=== PATIENT | female | born 1995 | race Caucasian/White ===

== ENCOUNTER 2017-11-08 16:28 | Emergency (ER) | payer OTHER ==
[2017-11-08 16:33] VITALS: BP 132/86; PULSE 89; TEMP 97.8; BMI 25.8
--- NOTE | 2017-11-08 16:33 | PDOC ---
Rapid Medical Evaluation Time Seen by Provider: 11/08/17 16:30 Medical Evaluation: Allergies Allergy/AdvReac Type Severity Reaction Status Date / Time No Known Allergies Allergy Verified 11/08/17 16:29 11/08/17 16:31 Pt c/o: nasal congestion, dry cough, eyes itchy and feeling feverish since sunday pt on exam: vss, no sinus pressure, post pharynx pink, lcta Pt ordered for: none p to proceed to the ED 11/08/17 16:33 Discharge Disposition - Diagnosis Nasal congestion - Referrals - Patient Instructions - Post Discharge Activity
--- NOTE | 2017-11-08 17:55 | PDOC ---
History of Present Illness - General Chief Complaint: Cold Symptoms Stated Complaint: ALLERGIES Time Seen by Provider: 11/08/17 16:30 History Source: Patient, Family Exam Limitations: No Limitations - History of Present Illness Initial Comments: 11/08/17 18:05 Patient is here with complaints of sneezing, chest tightness with cough, wheezing and suffering from seasonal pollen ALLERGIES Timing/Duration: reports: getting worse Severity: reports: moderate Associated Symptoms: reports: chest pain/soreness, facial pain, fever/chills, nasal congestion, nasal drainage Past History - Travel Traveled outside of the country in the last 30 days: No Close contact w/someone who was outside of country & ill: No - Past Medical History Allergies/Adverse Reactions: Allergies Allergy/AdvReac Type Severity Reaction Status Date / Time No Known Allergies Allergy Verified 11/08/17 16:29 Home Medications: Ambulatory Orders Albuterol Sulfate Inhaler - [Ventolin HFA Inhaler -] 1 - 2 inh PO Q4H #1 inhaler 11/08/17 Cetirizine HCl [All Day Allergy] 10 mg PO DAILY #30 tablet 11/08/17 - Suicide/Smoking/Psychosocial Hx Smoking History: Never smoked Review of Systems - Review of Systems Able to Perform ROS?: Yes Is the patient limited Malawian proficient: Yes Constitutional: Yes: Symptoms Reported, See HPI, Malaise HEENTM: Yes: Symptoms Reported, See HPI, Nose Congestion Respiratory: Yes: See HPI, Cough, Wheezing. No: Symptoms reported Musculoskeletal: Yes: See HPI. No: Symptoms Reported Integumentary: No: Symptoms Reported All Other Systems: Reviewed and Negative *Physical Exam - Vital Signs Last Vital Signs Temp Pulse Resp BP Pulse Ox 97.8 F 89 18 132/86 100 11/08/17 16:29 11/08/17 16:29 11/08/17 16:29 11/08/17 16:29 11/08/17 16:29 - Physical Exam General Appearance: Yes: Nourished, Appropriately Dressed, Apparent Distress, Mild Distress HEENT: positive: EOMI, ANA, Normal ENT Inspection, TMs Normal, Pharynx Normal, Rhinorrhea, Sinus Tenderness Neck: positive: Supple, Lymphadenopathy (R), Lymphadenopathy (L). negative: Tender Respiratory/Chest: positive: Wheezing. negative: Lungs Clear, Normal Breath Sounds Gastrointestinal/Abdominal: positive: Soft Musculoskeletal: positive: CVA Tenderness Extremity: positive: Normal Capillary Refill, Normal Inspection Integumentary: positive: Dry, Warm, Pale Neurologic: positive: configuration management specialist II-XII NML intact, Fully Oriented, Alert, Normal Mood/ Affect, Normal Response, Motor Strength 5/5 Progress Note - Progress Note Progress Note: Patient given 1 DuoNeb with much relief of chest tightness and wheezing. States feels much improved. Will start using antihistamines daily, and given albuterol pump. Encouraged follow-up with PMD *DC/Admit/Observation/Transfer Diagnosis at time of Disposition: Allergic rhinitis Qualifiers: Allergic rhinitis trigger: pollen Allergic rhinitis seasonality: seasonal Qualified Code(s): J30.1 - Allergic rhinitis due to pollen - Discharge Dispostion Disposition: HOME Condition at time of disposition: Stable Decision to Admit order: No - Referrals - Patient Instructions Printed Discharge Instructions: DI for Allergic Rhinitis Additional Instructions: Rest, drink lots of fluids: Teas, water, soups Saltwater gargles. Consider humidifier in room at night Steamy showers/seem to face break up mucus Avoid contact with allergens, exposure to pollens, close windows on a windy day Lots of handwashing and good hygiene Continue [id number] medications for symptomatic relief- may use allergic eyedrops for itching I Continue antihistamines daily until pollen season is over; Zyrtec, Claritin, Shyann during the daytime and Benadryl at nighttime as will make sleepy Tylenol or Motrin for fever and pain Continue albuterol inhaler, 2 puffs 4 times a day for 2 days then as needed Followup with private physician in one to 2 days as needed Consider following up with an district director/flight control tower operator for skin testing and possible allergy shots Return to emergency department for worsened symptoms, fevers, dehydration - Post Discharge Activity Forms/Work/School Notes: Back to Work
== END 2017-11-08 18:04 | disposition home or self-care (01) ==
LOC: JERFT 16:28
DX: J30.1 Allergic rhinitis due to pollen (principal)
CPT/HCPCS: 99281-25

== ENCOUNTER 2018-08-05 16:18 | Emergency (ER) | payer OTHER | END 2018-08-05 22:16 | disposition home or self-care (01) | LOC: JER 16:18 ==

== ENCOUNTER 2019-03-08 15:14 | Emergency (ER) | payer OTHER ==
[2019-03-08 15:25] VITALS: BMI 27.4
[2019-03-08] MEDS ORDERED: SODIUM CHLORIDE 1,000 ML IV STA (16:46)
--- NOTE | 2019-03-08 17:17 | PDOC ---
History of Present Illness - General Chief Complaint: Syncope/Near Syncope Stated Complaint: Syncope/Near Syncope Time Seen by Provider: 03/08/19 16:17 History Source: Patient Exam Limitations: No Limitations - History of Present Illness Initial Comments: 03/08/19 17:13 HISTORY OF PRESENT ILLNESS: This is a 24-year-old woman who is currently 35 weeks 6 days in her first with an EDC of 03/30 presents emergency department for evaluation of brief episode of room spinning dizziness. Patient reports that approximately 3:00 today she had a 2-3 minute episode of the room was spinning and she had a hard time keeping her balance. After the 2-3 minutes patient reported spontaneous resolution of symptoms has since returned to baseline. Currently has no complaints. She denies any fevers, chills, visual changes, headache, nausea, vomiting or chest pain, shortness of breath. Patient denies any obstetric complaints. No recent travel or sick contacts. PAST MEDICAL HISTORY: see HPI SURGICAL HISTORY: Denies ALLERGIES: No known drug allergies REVIEW OF SYSTEMS General/Constitutional: Denies fever or chills. Denies weakness, weight change. HEENT: Denies change in vision. Denies ear pain or discharge. Denies sore throat. Cardiovascular: Denies chest pain or shortness of breath. Respiratory: Denies cough, wheezing, or hemoptysis. Gastrointestinal: Denies nausea, vomiting, diarrhea or constipation. Denies rectal bleeding. Genitourinary: Denies dysuria, frequency, or change in urination. Musculoskeletal: Denies joint or muscle swelling or pain. Denies neck or back pain. Skin and breasts: Denies rash or easy bruising. Neurologic: see HPI Psychiatric: Denies depression or anxiety. Endocrine: Denies increased thirst. Denies abnormal weight change. Hematologic/Lymphatic: Denies anemia, easy bleeding, or history of blood clots. Allergic/Immunologic: Denies hives or skin allergy. Denies latex allergy. PHYSICAL EXAM General Appearance: Well-appearing, appropriately dressed. No apparent distress , no intoxication. HEENT: EOMI, PERRLA, normal ENT inspection, normal voice, TMs normal, pharynx normal. No conjunctival pallor. No photophobia, scleral icterus. Neck: Supple. Trachea midline. No tenderness, rigidity, carotid bruit, stridor , lymphadenopathy, or thyromegaly. Respiratory/Chest: Lungs CTAB. No shortness of breath, chest tenderness, respiratory distress, accessory muscle use. No crackles, rales, rhonchi, stridor , wheezing, dullness Cardiovascular: RRR. S1, S2. No JVD, murmur, bradycardia, tachycardia. Neurologic: telegraph service clerk II-XII intact. Fully oriented, alert. Appropriate mood/affect. Motor strength 5/5. No appreciable EOM palsy, facial droop or sensory deficit. (-)Rhomberg. Past History - Past Medical History Allergies/Adverse Reactions: Allergies Allergy/AdvReac Type Severity Reaction Status Date / Time No Known Allergies Allergy Verified 03/08/19 15:24 Home Medications: Ambulatory Orders Ferrous Sulfate [Feosol] 325 mg PO DAILY 01/09/19 Vits96/Iron Fum/Folic [ Tablet] 1 each PO DAILY 01/09/19 Cephalexin Monohydrate [Keflex -] 500 mg PO BID #14 capsule 03/08/19 COPD: No - Suicide/Smoking/Psychosocial Hx Smoking History: Never smoked *Physical Exam - Vital Signs Last Vital Signs Temp Pulse Resp BP Pulse Ox 98.7 F 106 H 18 143/81 100 03/08/19 15:22 03/08/19 15:22 03/08/19 15:22 03/08/19 15:22 03/08/19 15:22 ED Treatment Course - LABORATORY CBC & Chemistry Diagram: 03/08/19 17:09 03/08/19 17:09 Medical Decision Making - Medical Decision Making 03/08/19 17:16 A/P: 24-year-old woman with brief episode of vertiginous symptoms Physical exam is currently within normal limits. Patient offers no complaints at this time. I will get one set of labs including cardiac profile is normal an EKG. Full is normal with sent patient to labor and delivery for obstetrical evaluation prior to discharge home. Patient has agreement with this current plan. 03/08/19 19:10 EKG sinus rhythm with rate of 100. Normal intervals noted. Normal axis. No ischemic changes noted. CBC notable for WBC 12.1. No shift noted. Chemistries notable for an elevation in alkaline phosphatase-163. Cardiac profile is unremarkable. Urinalysis shows 2+ leuk esterase. I will treat for UTI as patient is . I'll discharge patient home the first go to L&D for monitoring. I discussed the physical exam findings, ancillary test results and final diagnoses with the patient. I answered all of the patient's questions. The patient was satisfied with the care received and felt comfortable with the discharge plan and treatment plan. The patient will call their primary care physician within 24 hours to arrange follow-up and will return to the Emergency Department with any new, persistent or worsening symptoms. Portions of this note have been documented using voice recognition software. As a result, errors may occur in the exercise instruct process. Effort has been made to correct all grammatical and exercise instruct error, but some may have been missed. 03/08/19 19:19 *DC/Admit/Observation/Transfer Diagnosis at time of Disposition: Cystitis - Discharge Dispostion Disposition: HOME Condition at time of disposition: Stable Decision to Admit order: No - Prescriptions Prescriptions: Cephalexin Monohydrate [Keflex -] 500 mg PO BID #14 capsule - Referrals - Patient Instructions Additional Instructions: Rest, drink lots of fluids: Teas, water, soups Avoid contact with others until fevers and symptoms resolved Lots of handwashing and good hygiene Continue [id number] medications for symptomatic relief Tylenol or Motrin for fever and pain Continue all of antibiotics until completed Followup with private physician in one week for repeat urinalysis/reevaluation Return to emergency department for worsened symptoms, fevers, dehydration bianca Escobaros lquidos: Ts, agua, sopas Evite el contacto con otros hasta que las fiebres y los sntomas se resuelvan Un montn de lavado de vishnu y buena higiene Contine los medicamentos sin receta para el alivio sintomtico Tylenol o Motrin para la fiebre y el dolor Continuar todos los antibiticos hasta completarse Seguimiento con mdico privado en kieran semana para repetir anlisis de orina / reevaluacin Volver al servicio de urgencias por sntomas empeorados, fiebres, deshidratacin - Post Discharge Activity
[2019-03-08 17:28] LABS: BASO % 0.4 % (0-2.0); EOS % 2.8 % (0-4.5); HEMATOCRIT 35.6 % (32.4-45.2); HEMOGLOBIN 11.6 GM/dL (10.7-15.3); LYMPH % 17.4 % (8-40); MCH 27.2 pg (25.7-33.7); MCHC 32.7 g/dl (32.0-36.0); MEAN CELL VOLUME 83.3 fl (80-96); MEAN PLT VOLUME 8.6 fl (7.5-11.1); MONO % 7.1 % (3.8-10.2); NEUT % 72.3 % (42.8-82.8); PLATELET COUNT 285 K/MM3 (134-434); RBC 4.27 M/mm3 (3.60-5.2); RDW 14.5 % (11.6-15.6); WHITE BLOOD COUNT 12.1 K/mm3 (4.0-10.0)
[2019-03-08 17:47] LABS: URINE APPEARANCE CLOUDY; URINE BILIRUBIN NEGATIVE (NEGATIVE); URINE COLOR YELLOW; URINE GLUCOSE (UA) NEGATIVE (NEGATIVE); URINE KETONE NEGATIVE (NEGATIVE); URINE LEUK ESTERASE 2+ (NEGATIVE); URINE NITRITE NEGATIVE (NEGATIVE); URINE PROTEIN NEGATIVE (NEGATIVE); URINE UROBILINOGEN 0.2 mg/dL (0.2-1.0)
[2019-03-08 18:13] LABS: ALBUMIN 3.3 g/dl (3.4-5.0); ALK PHOS 163 U/L (45-117); ANION GAP 9 MMOL/L (8-16); BILIRUBIN,TOTAL 0.6 mg/dL (0.2-1); BLOOD UREA NITROGEN 7.6 mg/dL (7-18); CALCIUM 8.9 mg/dL (8.5-10.1); CHLORIDE 108 mmol/L (98-107); CO2 24 mmol/L (21-32); CREATININE 0.7 mg/dL (0.55-1.3); GLUCOSE,RANDOM 93 mg/dL (74-106); POTASSIUM 3.9 mmol/L (3.5-5.1); SGOT/AST 18 U/L (15-37); SGPT/ALT 18 U/L (13-61); SODIUM 140 mmol/L (136-145); TOT PROT 6.5 g/dl (6.4-8.2)
[2019-03-08 20:22] VITALS: BP 121/66; PULSE 88; TEMP 98.3
[2019-03-08 21:10] LABS: URINE RBC 0.3 /hpf (0-4); URINE WBC 28.5 /hpf (0-5)
[2019-03-08 21:11] LABS: EPI CELLS 9.7 /HPF (0-5/HPF); HYALINE CASTS 10.15 /lpf (0-8); URINE BACTERIA 944.6 /hpf (NEGATIVE)
--- NOTE | 2019-03-09 16:45 | EKG ---
Test Reason : Blood Pressure : / mmHG Vent. Rate : 100 BPM Atrial Rate : 100 BPM P-R Int : 126 ms QRS Dur : 084 ms QT Int : 340 ms P-R-T Axes : 062 049 014 degrees QTc Int : 438 ms NORMAL SINUS RHYTHM POSSIBLE LEFT ATRIAL ENLARGEMENT BORDERLINE ECG NO PREVIOUS ECGS AVAILABLE Confirmed by DENI DEVLIN MD ([id number]) on 03/09/2019 4:45:32 PM Referred By: Confirmed By:DENI DEVLIN MD
== END 2019-03-08 20:52 | disposition home or self-care (01) ==
LOC: JER 15:14
PROC: 3E0337Z Introduction of Electrolytic and Water Balance Substance into Peripheral Vein, Percutaneous Approach (ICD-10-PCS; principal; 2019-03-08)
DX: O26.893 Other specified pregnancy related conditions, third trimester (principal); O23.13 Infections of bladder in pregnancy, third trimester; Z3A.35 35 weeks gestation of pregnancy
CPT/HCPCS: 36415; 80053; 81003; 82550; 84484; 85025; 87086; 93005; 93010; 96360; 99283-25; J7030

== ENCOUNTER 2019-03-28 03:05 | Inpatient (IN) | payer OTHER ==
[2019-03-28 04:30] LABS: INR 0.92 (0.83-1.09); PROTHROMBIN TIME (PATIENT) 10.9 SEC (9.7-13.0)
[2019-03-28 04:33] LABS: ACTIVATED PTT 21.3 SECONDS (25.2-36.5)
[2019-03-28 04:48] LABS: CALCIUM 8.8 mg/dL (8.5-10.1); CREATININE 0.6 mg/dL (0.55-1.3); POTASSIUM 3.9 mmol/L (3.5-5.1)
[2019-03-28 05:10] VITALS: BMI 28.2
[2019-03-28] MEDS ORDERED: BUTORPHANOL TARTRATE 1 MG/ML VIAL ONE ×2 (05:48)
[2019-03-28 05:49] LABS: HEMATOCRIT 33.4 % (32.4-45.2); HEMOGLOBIN 11.2 GM/dL (10.7-15.3); MCH 27.1 pg (25.7-33.7); MCHC 33.7 g/dl (32.0-36.0); MEAN CELL VOLUME 80.5 fl (80-96); MEAN PLT VOLUME 8.6 fl (7.5-11.1); PLATELET COUNT 271 K/MM3 (134-434); RBC 4.15 M/mm3 (3.60-5.2); WHITE BLOOD COUNT 13.6 K/mm3 (4.0-10.0)
[2019-03-28] MEDS ORDERED: PROMETHAZINE HCL 25 MG/1 ML VIAL ONE (05:49)
--- NOTE | 2019-03-28 05:51 | HP ---
Admitting History and Physical - Admission Chief Complaint: labor pains and ctx History of Present Illness: 24 y/o comes with labor pains and srom--she was seen here earlier then sent home--returns with srom and contractions. Baby is moving pt of hrhcrae hep-neg hiv-neg rpr-neg quant-neg gbs-neg History Source: Patient - Past Medical History LEASING COORDINATOR: No: Alzheimer's, CVA, Dementia, Migraine, Multiple Sclerosis, Peripheral Neuropathy, Parkinson's, Seizure, Syncope, TIA, Vertigo, Other Cardiovascular: No: AFIB, Aneurysm, Aortic Insufficiency, Aortic Stenosis, CAD, CHF, Deep Vein Thrombosis, HTN, Hyperlipdemia, NV, Mitral Insufficiency, Mitral Stenosis, Murmur, Pulmonary Hypertension, Other Pulmonary: No: Asthma, Bronchitis, Cancer, COPD, O2 Dependent, Pneumonia, Previously Intubated, Pulmonary Embolus, Pulmonary Fibrosis, Sleep Apnea, Other Gastrointestinal: No: Ascites, Cancer, Constipation, Crohn's Disease, Diverticulitis, Diverticulosis, Esophageal Varices, Gastritis, GERD, GI Bleed, Hemorrhoids, Hiatal Hernia, Inflamatory Bowel Disease, Irritable Bowel Disease, Pancreatitis, Peptic Ulcer Disease, Ulcerative Colitis, Other Hepatobiliary: No: Cirrhosis, Cholelithiasis, Cholecystitis, Choledocholithiasis , Hepatitis A, Hepatitis B, Hepatitis C, Other Renal/: No: Renal Failure, Renal Inusuff, BPH, Cancer, Hematuria, Hemodialysis , Neurogenic Bladder, Renal Calculi, UTI, Other ...: 1 ...Para: 0 Heme/Onc: No: Anemia, B12 Deficiency, Bleeding Disorder, Cancer, Current Chemotherapy, Current Radiation Therapy, Hemochromatosis, Hypercoaguable State, Myeloproliferative Synd, Sickle Cell Disease, Sickle Cell Trait, Thrombocytopenia, Other Infectious Disease: No: AIDS, C-Diff, Herpes Zoster, HIV, MRSA, STD's, Tuberculosis, VREF, Other Psych: No: Addictions, Anxiety, Bipolar, Depression, Panic, Psychosis, Schizophrenia, Other Musculoskeletal: No: Bursitis, Chronic low back pain, Hemiparesis, Hemiplegia, Osteoarthritis, Paraplegia, Other Rheumatology: No: Fibromyalgia, Gout, Lupus, Rheumatoid Arthritis, Sarcoidosis, Vasculitis, Other ENT: No: Allergic Rhinitis, Sinusitis, Other Endocrine: No: Riley's Disease, Downing's Disease, Diabetes Insipidus, Diabetes Mellitus, Hyperparathyroidism, Hyperthyroidism, Hypothyroidism, Osteopenia, SIADH, Other - Smoking History Smoking history: Never smoked - Alcohol/Substance Use Hx Alcohol Use: No Home Medications - Allergies Allergies/Adverse Reactions: Allergies Allergy/AdvReac Type Severity Reaction Status Date / Time No Known Allergies Allergy Verified 03/28/19 05:12 - Home Medications Home Medications: Ambulatory Orders Ferrous Sulfate [Feosol] 325 mg PO DAILY 01/09/19 Vits96/Iron Fum/Folic [ Tablet] 1 each PO DAILY 01/09/19 Review of Systems - Review of Systems Constitutional: denies: No Symptoms, Chills, Diaphoresis, Fever, Lethargy, Loss of Appetite, Malaise, Night Sweats, Unintentional Wgt. Loss, Weakness, Other Eyes: denies: No Symptoms, Blind Spots, Blurred Vision, Double Vision, Eye Pain , Floaters, Photophobia, Recent Change in Vision, Other HENT: denies: No Symptoms, Difficult Swallowing, Ear Discharge, Ear Pain, Epistaxis, Gingival Bleeding, Hearing Loss, Mouth Swelling, Nasal Congestion, Ocular Prosthesis, Throat Pain, Toothache, Ringing in Ears, Other Cardiovascular: denies: No Symptoms, Chest Pain, Edema, Palpitations, Shortness of Breath, Other Respiratory: denies: No Symptoms, Cough, Exercise Intolerance, Hemoptysis, Orthopnea, PND, Snoring, SOB, SOB on Exertion, Wheezing, Other Gastrointestinal: denies: No Symptoms, Abdominal Pain, Bloating, Constipation, Diarrhea, Dysphagia, Indigestion, Melena, Nausea, Rectal Bleeding, Vomiting, Vomiting Blood, Other Genitourinary: denies: No Symptoms, Burning, Discharge, Dysuria, Flank Pain, Frequency, Hematuria, Incontinence, Lesions, Menses, Pain, Testicular Mass, Testicular Pain, Testicular Swelling, Urgency, Vaginal Bleeding, Other Integumentary: denies: No Symptoms, Blister, Bruising, Change in Color, Eczema, Erythema, Incision, Lesions, Lump, Pallor, Pruritis, Rash, Wound, Other Neurological: denies: No Symptoms, Change in LOC, Change in Speech, Confusion, Dizziness, Headache, Incoordination, Numbness, Parasthesia, Pre-Existing Deficit , Seizure, Syncope, Tremors, Unsteady Gait, Weakness, Other Endocrine: denies: No Symptoms, Excessive Sweating, Flushing, Increased Hunger, Increased Thirst, Intolerance to Cold, Intolerance to Heat, Unexplained Weight Gain, Unexplained Weight Loss, Other Hematology/Lymphatic: denies: No Symptoms, Easily Bruised, Excessive Bleeding, Swollen Glands, Other Physical Examination Constitutional: Yes: Well Nourished Eyes: Yes: WNL HENT: Yes: WNL Neck: Yes: WNL Cardiovascular: Yes: WNL Respiratory: Yes: WNL Gastrointestinal: Yes: WNL ...Rectal Exam: Yes: WNL Renal/: Yes: WNL Breast(s): Yes: WNL Extremities: Yes: WNL (3cm/-2 cat1) Labs: CBC, BMP 03/28/19 03:35 Assessment/Plan as above admit pains meds labs labor
[2019-03-28] MEDS ORDERED: PROMETHAZINE HCL 25 MG/1 ML VIAL IVPUSH ONE (06:17)
[2019-03-28] MEDS ORDERED: BUTORPHANOL TARTRATE 1 MG/ML VIAL IVPB ONE (06:17)
[2019-03-28] MEDS ORDERED: DEXTROSE 5%-LACTATED RINGERS 1,000 ML IV SCH (06:30)
[2019-03-28] MEDS ORDERED: FENTANYL/BUPIVACAINE/NS/PF - PCEA - 50 ML DISP.SYRIN EP ONE (08:14)
--- NOTE | 2019-03-28 08:33 | PN ---
Progress Note, Labor Vaginal Exam #1 Labor Exam Date: 03/28/19 Labor Exam Time: 08:00 Heart Rate (range): 135 Dilatation: 7 Effacement (%): 100 Amniotic Membrane Status: Ruptured Presentation: Vertex/Position Station: 0 Remarks: uc q 3-5 fhr cat -1 epidural 8.[address] trial of labor
[2019-03-28] MEDS ORDERED: OXYTOCIN 20 UNITS in 0.9% NS 20 UNIT/1,000 ML INFUS.BAG IV ONE ×2 (08:44→12:05)
[2019-03-28] MEDS ORDERED: LIDOCAINE HCL 1% PRESERVATIVE FREE - 30ML VIAL ONE (08:44)
[2019-03-28] MEDS ORDERED: NALOXONE HCL 0.4 MG/ML VIAL IVPUSH PRN ×2 (11:25→11:40)
[2019-03-28] MEDS ORDERED: ceFAZolin 2 GRAM PREMIX BAG IVPB ONE (11:26)
[2019-03-28] MEDS ORDERED: oxyCODONE HCL 5 MG TABLET PO PRN (11:27)
[2019-03-28] MEDS ORDERED: WITCH HAZEL 50% (TUCKS) 40 PAD/JAR PAD TP PRN (11:27)
[2019-03-28] MEDS ORDERED: BENZOCAINE 28 GM HEMORRHOIDAL OINTMENT TP PRN (11:27)
[2019-03-28] MEDS ORDERED: BISACODYL 10 MG SUPP.RECT RC PRN (11:27)
[2019-03-28] MEDS ORDERED: SENNOSIDES/DOCUSATE COMBO (SENNA PLUS) TABLET (UD) PO STA (11:27)
[2019-03-28] MEDS ORDERED: METHYLERGONOVINE MALEATE 0.2 MG/1 ML AMP IM PRN (11:27)
[2019-03-28] MEDS ORDERED: BENZOCAINE 20% 57 GM BOTTLE TP PRN (11:27)
[2019-03-28] MEDS ORDERED: FENTANYL/BUPIVACAINE/NS/PF - PCEA - 50 ML DISP.SYRIN EP SCH ×2 (11:30→11:45)
[2019-03-28] MEDS ORDERED: OXYTOCIN 20 UNITS in 0.9% NS 20 UNIT/1,000 ML INFUS.BAG IV SCH (11:30)
[2019-03-28] MEDS ORDERED: CEFAZOLIN 2 GM/D5W 2 GM/50 ML ML IVPB ONE (12:05)
--- NOTE | 2019-03-28 15:57 | PN ---
Delivery - Delivery Vaginal Delivery: Spontaneous (pt delivered vx , presentation, Adalid position, large caput , loose loop of cord around neck , ant shoulder delivered by giving exagerrated lithotomy position without problem . placenta & membranes delievered completly, MEU done ut intact & empty. Vaginal Left Lateral Laceration noted deep inside bleeding , vaginal mucosa very fragile .laceration sutured with chr catgut #2/0 suture . hemostasis achieved media episiotomy was given . NH exam was done partial sphincter tear was noted which was sutured with 2/0 chr catgut & suture were held not tied . After suturing vaginal mucosa , ligatures were tied. deep perineal & superficial muscles tied , skin approximated with 2/o cr catgut suture . Xyloicaine 1% was infiltrated before suturing .NH exam repeated mucosa & sphincter intact . ebl 500ml approx . Note : vaginal bleeding from laceration was noted prior to delivery) Type of Anesthesia: Local, Epidural Episiotomy/Laceration: Midline, Vaginal Extension/lac, 3rd degree EBL (cc): 500 Delivery, Single - Stages of Labor Date 1st Stage Initiatied: 03/28/19 Time 1st Stage Initiated: 05:00 Date 2nd Stage Initiated: 03/28/19 Time 2nd Stage Initiated: 09:40 Date of Delivery: 03/28/19 Time of Delivery: 10:29 Time Placenta Delivered: 10:35 Placenta: Yes: Spontaneous - Condition of Infant Senior Business Architect/Assistant Refinery Operator Present: No Infant Gender: Male Weight: 8 lb 4 oz Position: Left, OA Total Hours ROM (Hrs/Mins): 8hrs/35mins - 1 Minute Total Score: 8 5 Minutes Total Score: 9 - Feeding Plan Initial Plan: Elected not to breastfeed exclusively throughout hospitalization Remarks - Remarks Remarks: 24 yrs Edc 03/14/19 by janie -42 weeks. Edc by min 03/29/19 39.5/7 weeks by min . wiley Christensen for Srom since 2.00 AM on 03/28/19 in labor Gbs neg. Pnc at [address] [place] [address]
[2019-03-28] MEDS: FERROUS SO4 325 MG TABLET (FP) PO SCH (17:37)
[2019-03-28] MEDS: IBUPROFEN 600 MG TABLET (FP) PO PRN (17:56)
[2019-03-28] MEDS: ACETAMINOPHEN 325 MG TABLET (FP) PO PRN (17:58)
[2019-03-29 07:18] LABS: BASO % 0.6 % (0-2.0); EOS % 0.9 % (0-4.5); HEMATOCRIT 27.4 % (32.4-45.2); HEMOGLOBIN 9.3 GM/dL (10.7-15.3); LYMPH % 20.8 % (8-40); MCH 27.8 pg (25.7-33.7); MCHC 33.9 g/dl (32.0-36.0); MEAN CELL VOLUME 81.9 fl (80-96); MEAN PLT VOLUME 8.4 fl (7.5-11.1); MONO % 7.9 % (3.8-10.2); NEUT % 69.8 % (42.8-82.8); PLATELET COUNT 265 K/MM3 (134-434); RBC 3.34 M/mm3 (3.60-5.2); RDW 15.2 % (11.6-15.6); WHITE BLOOD COUNT 13.6 K/mm3 (4.0-10.0)
--- NOTE | 2019-03-29 08:07 | PN ---
Post Progress Note - Subjective Subjective: no c/o cramps no c/o perineal soreness Post Day: 1 Type of Delivery: Vital Signs: Vital Signs Temperature 98.3 F 03/29/19 06:00 Pulse Rate 93 H 03/29/19 06:00 Respiratory Rate 18 03/29/19 06:00 Blood Pressure 118/65 03/29/19 06:00 O2 Sat by Pulse Oximetry (%) 99 03/28/19 13:38 Breast Exam: Yes: Soft, Other (attempting BF). No: Engorged Uterus: Yes: Fundus Firm, Fundus below umbilicus, Non-tender Lochia: Yes: Rubra Lochia, amount: Moderate Extremities: Yes: Calves non-tender, Edema Perineum: Yes: Episiotomy (healing . hygeine kept well ) Activity: Ambulating - Labs Labs: CBC WBC 13.6 K/mm3 (4.0-10.0) H 03/29/19 06:40 Corrected WBC (auto) Cancelled 03/28/19 03:35 RBC 3.34 M/mm3 (3.60-5.2) L 03/29/19 06:40 Hgb 9.3 GM/dL (10.7-15.3) L 03/29/19 06:40 Hct 27.4 % (32.4-45.2) L D 03/29/19 06:40 MCV 81.9 fl (80-96) 03/29/19 06:40 MCH 27.8 pg (25.7-33.7) 03/29/19 06:40 MCHC 33.9 g/dl (32.0-36.0) 03/29/19 06:40 RDW 15.2 % (11.6-15.6) 03/29/19 06:40 Plt Count 265 K/MM3 (134-434) 03/29/19 06:40 MPV 8.4 fl (7.5-11.1) 03/29/19 06:40 Absolute Neuts (auto) 9.5 K/mm3 (1.5-8.0) H 03/29/19 06:40 Neutrophils % 69.8 % (42.8-82.8) 03/29/19 06:40 Lymphocytes % 20.8 % (8-40) 03/29/19 06:40 Monocytes % 7.9 % (3.8-10.2) 03/29/19 06:40 Eosinophils % 0.9 % (0-4.5) 03/29/19 06:40 Basophils % 0.6 % (0-2.0) 03/29/19 06:40 Nucleated RBC % 0 % (0-0) 03/29/19 06:40 Platelet Estimate Cancelled 03/28/19 03:35 Platelet Comment Cancelled 03/28/19 03:35 Problem List - Problems (1) (normal spontaneous vaginal delivery) Code(s): O80 - ENCOUNTER FOR FULL-TERM UNCOMPLICATED DELIVERY (2) Encounter for care and examination after delivery Code(s): Z39.2 - ENCOUNTER FOR ROUTINE FOLLOW-UP Assessment/Plan stable anemia counselled plan discharge tomorrow.
[2019-03-29] MEDS: FERROUS SO4 325 MG TABLET (FP) PO SCH ×2 (08:14→17:44)
[2019-03-29] MEDS: PRENATAL VITAMINS W/ FOLIC ACID TABLET (FP) PO SCH (09:58)
[2019-03-29] MEDS: IBUPROFEN 600 MG TABLET (FP) PO PRN (20:09)
[2019-03-29] MEDS: ACETAMINOPHEN 325 MG TABLET (FP) PO PRN (20:09)
[2019-03-30] MEDS: PRENATAL VITAMINS W/ FOLIC ACID TABLET (FP) PO SCH (09:15)
[2019-03-30] MEDS: FERROUS SO4 325 MG TABLET (FP) PO SCH (09:15)
--- NOTE | 2019-03-30 10:06 | DS ---
Physical Exam-CLUBHOUSE MANAGER Vital Signs: Vital Signs Temperature 98.0 F 03/29/19 20:31 Pulse Rate 104 H 03/29/19 20:31 Respiratory Rate 18 03/29/19 20:31 Blood Pressure 114/78 03/29/19 20:31 O2 Sat by Pulse Oximetry (%) 99 03/28/19 13:38 Constitutional: Yes: Well Nourished Eyes: Yes: WNL HENT: Yes: WNL, Normocephalic Neck: Yes: WNL Cardiovascular: Yes: WNL Respiratory: Yes: WNL Gastrointestinal: Yes: WNL, Normal Bowel Sounds ...Rectal Exam: Yes: WNL, Sphincter Tone Normal (partial sphincter tear repair during delivery), Other Renal/: Yes: WNL ....Post : Yes: Uterus firm, Uterus non-tender, Moderate lochia rubra ( perineal hygeine good sutures intact , healing, no edema or erythema around episiotmy wound) Breast(s): Yes: WNL (BF & Bottle feeding) Musculoskeletal: Yes: WNL Extremities: Yes: WNL Edema: LLE: Trace, RLE: Trace Integumentary: Yes: Tattoos Neurological: Yes: WNL ...Motor Strength: WNL Psychiatric: Yes: WNL, Alert, Oriented Labs: CBC, BMP 03/29/19 06:40 03/28/19 03:35 Delivery - Delivery Vaginal Delivery: Spontaneous (pt delivered vx , presentation, Adalid position, large caput , loose loop of cord around neck , ant shoulder delivered by giving exagerrated lithotomy position without problem . placenta & membranes delievered completly, MEU done ut intact & empty. Vaginal Left Lateral Laceration noted deep inside bleeding , vaginal mucosa very fragile .laceration sutured with chr catgut #2/0 suture . hemostasis achieved media episiotomy was given . [place] exam was done partial sphincter tear was noted which was sutured with 2/0 chr catgut & suture were held not tied . After suturing vaginal mucosa , ligatures were tied. deep perineal & superficial muscles tied , skin approximated with 2/o cr catgut suture . Xyloicaine 1% was infiltrated before suturing .AZ exam repeated mucosa & sphincter intact . ebl 500ml approx . 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 Edc by min 03/29/19 39.5/7 weeks by min . admjhonathan Christensen for Srom since 2.00 AM on 03/28/19 in labor Gbs neg. Pnc at [address] [place] [address] anemia counselled pericare explained in details discharge 03/30/19 Discharge Summary Problems reviewed: Yes Reason For Visit: LABOR ADMIT Current Active Problems Encounter for care and examination after delivery (Acute) (normal spontaneous vaginal delivery) (Acute) Procedures: Principal: Hospital Course: uneventful Health Concerns: pericare anemia Plan of Treatment: Post Instructions DIET: Continue good diet high in protein, calcium, and iron rich foods. Drink at least eight (8) glasses of water daily in addition to other fluids. ___ Regular diet MEDICATIONS: Continue vitamins and iron as previously directed. Motrin and Tylenol may be taken for minor discomfort. ACTIVITY: Mild to moderate exercise may be started in two (2) weeks. Take frequent rest periods. Resume normal activity after six (6) week check up. WOUND CARE OF OPERATIVE SITE: Continue use of perineal bottle until vaginal discharge stops. Keep area clean. Shower daily. Keep abdominal wound dry. Report any drainage or redness to physician. Tub baths, tampons and douches are not permitted for 6 weeks. Perineal Care Sitz bath ct Breast feeding & Bottle feeding BREAST CARE: (For those that are not ): If engorgement occurs: Wear tight fitting bra. Take Tylenol or Motrin for pain. Apply cold packs (ice in bags to each breast ) FAMILY PLANNING: There are many control alternatives to pursue and they should be discussed at your first office visit. You may resume sexual activity after your six (6) week check up. (Remember, breast feeding is not a contraceptive) NEXT PHYSICIAN APPOINTMENT: Be certain to call for a four- six (4-6) week appointment, unless otherwise directed. Call Clinic or got to Emergency Dept if you have any of the following: Heavy vaginal bleeding Painful urination Leg pain Unusual odor noted to vaginal bleeding High fever Red streaking noted on breast written in pp instructions Goals: maternal & well being Condition: Stable - Instructions Diet, Activity, Other Instructions: Post Instructions DIET: Continue good diet high in protein, calcium, and iron rich foods. Drink at least eight (8) glasses of water daily in addition to other fluids. _ct Regular diet _ MEDICATIONS: Continue vitamins and iron as previously directed. Motrin and Tylenol may be taken for minor discomfort. ACTIVITY: Mild to moderate exercise may be started in two (2) weeks. Take frequent rest periods. Resume normal activity after six (6) week check up. WOUND CARE OF OPERATIVE SITE: Continue use of perineal bottle until vaginal discharge stops. Keep area clean. Shower daily. Keep abdominal wound dry. Report any drainage or redness to physician. Tub baths, tampons and douches are not permitted for 6 weeks. SIT _ct Breast feeding & or Bottle feeding BREAST CARE: (For those that are not ): If engorgement occurs: Wear tight fitting bra. Take Tylenol or Motrin for pain. Apply cold packs (ice in bags to each breast ) FAMILY PLANNING: There are many control alternatives to pursue and they should be discussed at your first office visit. You may resume sexual activity after your six (6) week check up. (Remember, breast feeding is not a contraceptive) NEXT PHYSICIAN APPOINTMENT: Be certain to call for a four - six (4-6) week appointment, unless otherwise directed. Call Clinic or got to Emergency Dept if you have any of the following: Heavy vaginal bleeding Painful urination Leg pain Unusual odor noted to vaginal bleeding High fever Red streaking noted on breast Referrals: Libia Zamorano MD [Staff Physician] - Disposition: HOME - Home Medications Comprehensive Discharge Medication List: Ambulatory Orders Ferrous Sulfate [Feosol] 325 mg PO DAILY 01/09/19 Vits96/Iron Fum/Folic [ Tablet] 1 each PO DAILY 01/09/19 Acetaminophen [Tylenol .Regular Strength -] 650 mg PO Q3H PRN tablet 03/29/19 Benzocaine [Americaine 20% [place] -] 1 spray TP PRN PRN bottle 03/29/19 Docusate Sodium [Colace] 100 mg PO BID #30 capsule 03/29/19 Ferrous Sulfate [Feosol] 325 mg PO BIDWM 60 Days #60 tab 03/29/19 Ibuprofen [Motrin -] 600 mg PO Q4H PRN #20 tablet 03/29/19 Vitamins (Sjr) - 1 tab PO DAILY #30 tablet 03/29/19 Witch Joyce 50% (Tucks) [Tucks Pads -] 1 pad TP PRN PRN pad 03/29/19 Prescription Drug Monitoring Program (I-STOP) results: I-STOP reviewed and no issues identified
[2019-03-30 10:53] VITALS: BP 120/72; PULSE 92; TEMP 98.4
== END 2019-03-30 13:10 | disposition home or self-care (01) | DRG 542 ==
LOC: JLDR 03:05 → J3W 13:39
PROVIDERS: ADMIT Obstetrics & Gynecology; ATTEND Obstetrics & Gynecology
PROC: 10E0XZZ Delivery of Products of Conception, External Approach (ICD-10-PCS; principal; 2019-03-28)
PROC: 0DQR0ZZ Repair Anal Sphincter, Open Approach (ICD-10-PCS; 2019-03-28)
PROC: 0W8NXZZ Division of Female Perineum, External Approach (ICD-10-PCS; 2019-03-28)
DX: O70.20 Third degree perineal laceration during delivery, unspecified (principal); Z3A.42 42 weeks gestation of pregnancy; O69.81X0 Labor and delivery complicated by cord around neck, without compression, not applicable or unspecified; Z37.0 Single live birth
CPT/HCPCS: 36415; 36600; 59409; 80048; 82803; 85025; 85027; 85610; 85730; 86593; 86850; 86900; 86901

== ENCOUNTER 2020-05-03 08:58 | Emergency (ER) | payer OTHER ==
[2020-05-03 09:07] VITALS: BP 123/91; PULSE 91; TEMP 99.1; BMI 24.5
--- OUTSIDE RECORDS SUMMARY | 2020-05-03 09:21 | XMS ---
:1995 Demographics Address [address] [place] [address] CELL Preferred Language es Marital Status or Mormon Affiliation NO Race [facility] Ethnic Group or Author Organization [facility] Support Name Relationship Address Phone [place] Unavailable [address] [place] [address] NEELIMA DINH MOTHER [address] [phone] [place] [address] BENI SLADE Unavailable [address] [place] [address] Re-disclosure Warning The records that you are about to access may contain information from federally- assisted alcohol or drug abuse programs. If such information is present, then the following federally mandated warning applies: This information has been disclosed to you from records protected by federal confidentiality rules (42 CFR part 2). The federal rules prohibit you from making any further disclosure of this information unless further disclosure is expressly permitted by the written consent of the person to whom it pertains or as otherwise permitted by 42 CFR part 2. A general authorization for the release of medical or other information is NOT sufficient for this purpose. The Federal rules restrict any use of the information to criminally investigate or prosecute any alcohol or drug abuse patient.The records that you are about to access may contain highly sensitive health information, the redisclosure of which is protected by Article 27-F of the [facility] Public Health law. If you continue you may haveaccess to information: Regarding HIV / AIDS; Provided by facilities licensed or operated by the [facility] Office of Mental Health; or Provided by the [facility] Office for People With Developmental Disabilities. If such information is present, then the following [facility] mandated warning applies: This information has been disclosed to you from confidential records which are protected by state law. State law prohibits you from making any further disclosure of this information without the specific written consent of the person to whom it pertains, or as otherwise permitted by law. Any unauthorized further disclosure in violation of state law may result in a fine or intermediate sentence or both. A general authorization for the release of medical or other information is NOT sufficient authorization for further disclosure. Encounters Encounter Providers Location Date Indications Data Source(s ) Outpatient [facility] 05/05/2019 eCW3 [facility]00 [facility] - [facility]) 05/05/2019 12:00:00 AM EST Outpatient [facility] 04/25/2019 eCW3 [facility]:00 [facility] EDT - Care) 04/25/2019 12:00:00 AM EDT () [facility] 04/25/2019 12:00:00 AM EDT (EOB) Established [facility] 03/27/2019 eCW 3 ([facility] 12:00:00 [facility] - [facility]) 03/27/2019 12:00:00 AM EDT (EOB) Established [facility] 03/17/2019 eCW 3 ([facility] 12:00:00 [facility] EDT - Care) 03/17/2019 12:00:00 AM EDT (EOB) Established [facility] 03/10/2019 eCW 3 ([facility] 12:00:00 [facility] - Care) 03/10/2019 12:00:00 AM EDT Insurance Providers Payer name Policy type / Policy ID Covered Covered alliance party's Policy Plan Coverage type alliance party ID relationship to Ghotra Information ghotra ALEN [id number] SP [id number] ESSENTIAL PLAN 3 4 ALEN CARE [id number] [facility] MEDICAID [id number] SP [id number] ALEN [id number] SP [id number] ESSENTIAL PLAN 1 2 ALEN CARE [id number] [place] Care Individual 0 Self 0 [place] Policy Alen Care [id number] S [id number] HMO Essential Plan 2 Social History Code Duration Value Status Description Data Source(s ) Smoking 05/05/2019 12:00:00 Never Smoker completed Never Smoker e CW3 ([facility]) Smoking 05/05/2019 12:00:00 Never Smoker completed Never Smoker e CW3 ([facility]) Smoking 05/05/2019 12:00:00 Never Smoker completed Never Smoker e CW3 ([facility]) Smoking 05/05/2019 12:00:00 Never Smoker completed Never Smoker e CW3 ([facility]) Smoking 05/05/2019 12:00:00 Never Smoker completed Never Smoker e CW3 ([facility]) Smoking 05/05/2019 12:00:00 Never Smoker completed Never Smoker e CW3 ([facility]) Smoking 05/05/2019 12:00:00 Never Smoker completed Never Smoker e CW3 ([facility]) Smoking 05/05/2019 12:00:00 Never Smoker completed Never Smoker e CW3 ([facility]) Smoking 05/05/2019 12:00:00 Never Smoker completed Never Smoker e CW3 ([facility]) Smoking 05/05/2019 12:00:00 Never Smoker completed Never Smoker e CW3 ([facility]) Smoking 05/05/2019 12:00:00 Never Smoker completed Never Smoker e CW3 ([facility]) Smoking 05/05/2019 12:00:00 Never Smoker completed Never Smoker e CW3 ([facility]) Smoking 05/05/2019 12:00:00 Never Smoker completed Never Smoker e CW3 ([facility]) Smoking 04/25/2019 12:00:00 Never Smoker completed Never Smoker e CW3 (Replaced by [facility]) Vital Signs ID Date Data Source UNK Name Value Range Interpretation Code Description Data Source(s) Diastolic blood 81 mm[Hg] 81 mm[Hg] eCW3 ([facility]) Systolic blood 123 mm[Hg] 123 mm[Hg] eCW3 ([facility]) Body temperature 98.2 [degF] 98.2 [degF] eCW3 ( [facility]) Heart rate 20 /min 20 /min eCW3 ([facility]) Body mass index 24.85 kg/m2 24.85 kg/m2 eCW3 ([facility] (BMI) [Ratio] [facility]) Body weight 154 [lb_av] 154 [lb_av] eCW3 ([facility]) Body height 66 [in_i] 66 [in_i] eCW3 ([facility]) Diastolic blood 79 mm[Hg] 79 mm[Hg] eCW3 ([facility]) Systolic blood 117 mm[Hg] 117 mm[Hg] eCW3 ([facility]) Body temperature 98.5 [degF] 98.5 [degF] eCW3 ( [facility]) Heart rate 20 /min 20 /min eCW3 ([facility]) Body mass index 28.407 kg/m2 28.407 kg/m2 eCW3 ([facility] (BMI) [Ratio] [facility]) Body weight 176 [lb_av] 176 [lb_av] eCW3 ([facility]) Body height 66 [in_i] 66 [in_i] eCW3 ([facility]) Diastolic blood 74 mm[Hg] 74 mm[Hg] eCW3 ([facility]) Systolic blood 128 mm[Hg] 128 mm[Hg] eCW3 ([facility]) Body temperature 98.7 [degF] 98.7 [degF] eCW3 ( [facility]) Heart rate 20 /min 20 /min eCW3 ([facility]) Body mass index 28.084 kg/m2 28.084 kg/m2 eCW3 ([place] (BMI) [Ratio] [facility]) Body weight 174 [lb_av] 174 [lb_av] eCW3 ([facility]) Body height 66 [in_i] 66 [in_i] eCW3 ([facility]) Diastolic blood 75 mm[Hg] 75 mm[Hg] eCW3 ([facility]) Systolic blood 117 mm[Hg] 117 mm[Hg] eCW3 ([facility]) Body temperature 98.3 [degF] 98.3 [degF] eCW3 ( [facility]) Heart rate 20 /min 20 /min eCW3 ([facility]) Body mass index 27.923 kg/m2 27.923 kg/m2 eCW3 ([place] (BMI) [Ratio] [facility]) Body weight 173 [lb_av] 173 [lb_av] eCW3 ([facility]) Body height 66 [in_i] 66 [in_i] eCW3 ([facility])
[2020-05-03] MEDS ORDERED: IBUPROFEN 600 MG TABLET (FP) PO ONE ×2 (09:27→09:33)
--- NOTE | 2020-05-03 09:30 | PDOC ---
History of Present Illness - General Chief Complaint: Injury Stated Complaint: RT WRIST PAIN Time Seen by Provider: 05/03/20 09:09 History Source: Patient Exam Limitations: No Limitations - History of Present Illness Initial Comments: 05/03/20 09:28 Patient is a 25-year-old female who presents to the ED with complaint of right wrist pain after trip and fall yesterday. She states she landed on outstretched wrist. She states her pain was not bad yesterday but overnight her pain got much more severe. She denies any numbness or tingling. She denies hitting her head or any LOC. She states she has not taken anything for her symptoms. Past History - Medical History Allergies/Adverse Reactions: Allergies Allergy/AdvReac Type Severity Reaction Status Date / Time No Known Allergies Allergy Verified 05/03/20 09:03 Home Medications: Ambulatory Orders Ferrous Sulfate [Feosol] 325 mg PO DAILY 01/09/19 Vits96/Iron Fum/Folic [ Tablet] 1 each PO DAILY 01/09/19 Acetaminophen [Tylenol .Regular Strength -] 650 mg PO Q3H PRN tablet 03/29/19 Benzocaine [Americaine 20% [place] -] 1 spray TP PRN PRN bottle 03/29/19 Docusate Sodium [Colace] 100 mg PO BID #30 capsule 03/29/19 Ferrous Sulfate [Feosol] 325 mg PO BIDWM 60 Days #60 tab 03/29/19 Ibuprofen [Motrin -] 600 mg PO Q4H PRN #20 tablet 03/29/19 Vitamins (Sjr) - 1 tab PO DAILY #30 tablet 03/29/19 Witch Joyce 50% (Tucks) [Tucks Pads -] 1 pad TP PRN PRN pad 03/29/19 Asthma: No Cancer: No Cardiac Disorders: No COPD: No Diabetes: No HTN: No Seizures: No Thyroid Disease: No - Reproductive History Is Patient Now?: No - Psycho-Social/Smoking History Smoking History: Never smoked Have you smoked in the past 12 months: No - Substance Abuse Hx (Audit-C & DAST Scrn) How often the patient has a drink containing alcohol: Never Score: In Men: 4 or > Positive; In Women: 3 or > Positive: 0 Screen Result (Pos requires Nsg. Audit-10AR): Negative In the last yr the pt used illegal drug/Rx for NonMed reason: No Score: Yes response is considered Positive: 0 Screen Result (Positive result requires Nsg. DAST-10): Negative Review of Systems - Review of Systems Comments:: 05/03/20 09:28 - Review of Systems Able to Perform ROS?: Yes Constitutional: No: Fever, Chills, Loss of Appetite, Night Sweats, Weakness HEENTM: No: Eye Pain, Vision changes, Ear Pain, Throat Pain, Throat Swelling, Mouth Pain, Difficulty Swallowing Respiratory: No: Cough, Shortness of Breath, Wheezing, Sputum Production Cardiac (ROS): No: Chest Pain, Chest Tightness, Palpitations, Irregular Heart Beat, Edema ABD/GI: No: Nausea, Vomiting, Abdominal Pain, Diarrhea Musculoskeletal: No: Muscle Pain, Back Pain, Joint Pain, Muscle Weakness, Neck Pain; positive: Right wrist pain Integumentary: No: Lesions, Rash Neurological: No: Headache, Numbness, Tingling, Weakness, Speech Difficulties *Physical Exam - Vital Signs Last Vital Signs Temp Pulse Resp BP Pulse Ox 99.1 F 91 H 18 123/91 100 05/03/20 09:03 05/03/20 09:03 05/03/20 09:03 05/03/20 09:03 05/03/20 09:03 - Physical Exam 05/03/20 09:28 - Physical Exam General Appearance: Nourished, Appropriately Dressed, No Distress HEENT: EOMI, Normal Voice, Hearing Grossly Normal Neck: Supple, No Lymphadenopathy (R), No Lymphadenopathy (L), No Rigidity, No Decreased range of motion Respiratory/Chest: Lungs Clear, Normal Breath Sounds. No Respiratory Distress, No Accessory Muscle Use Cardiovascular: Regular Rhythm, Regular Rate, S1, S2 Musculoskeletal: Normal Inspection. No Decreased Range of Motion; no reproducible right wrist tenderness to palpation. Full range of motion of the right wrist with flexion and extension. Patient able to move all fingers freely. Sensation intact to the radial, median and ulnar nerve distributions. Brisk capillary refill distally. No tenderness over the anatomical snuffbox to palpation or with axial loading of the thumb. Radial pulse palpable. Extremity: Normal Capillary Refill, Normal Inspection Integumentary: Normal Color, Dry. No Rash Neurologic: customer insight analyst II-XII NML intact, Fully Oriented, Alert, Normal Mood/Affect, Normal Response ED Treatment Course - RADIOLOGY Radiology Studies Ordered: Category Date Time Status WRIST- RIGHT [RAD] Stat Radiology 05/03/20 09:14 Taken Medical Decision Making - Medical Decision Making 05/03/20 09:29 Assessment: Patient is a 25-year-old female with right wrist pain after a fall yesterday. Plan: -Right wrist x-ray ordered -Motrin ordered -Will reassess 05/03/20 09:35 The patient has been made aware that she has no fractures of her right wrist. We will refer her to hand surgery for further evaluation and treatment. We will place her in a cock-up wrist splint for support. She can take Tylenol or ibuprofen for pain. She understands and agrees with this treatment plan and she is stable for discharge. Discharge - Discharge Information Problems reviewed: Yes Clinical Impression/Diagnosis: Right wrist sprain Qualifiers: Encounter type: initial encounter Qualified Code(s): S63.501A - Unspecified sprain of right wrist, initial encounter Condition: Stable Disposition: HOME - Follow up/Referral Referrals: Jose Alejandro Cobb MD [Staff Physician] - 3 days - Patient Discharge Instructions Patient Printed Discharge Instructions: DI for Wrist Sprain Additional Instructions: Ice and elevate your wrist to help with pain. Take Tylenol or ibuprofen for pain. Wear the wrist splint as needed for comfort and support. Avoid any strenuous activity to help your wrist heal. Follow-up with hand surgery for further evaluation and treatment. You have been referred to a hand surgeon for repeat evaluation. Aplica Hielo y levante la mueca para aliviar el dolor. [place] Tylenol o ibuprofeno para el dolor. Use la frula para la mueca segn sea necesario para mayor comodidad y apoyo. Evite cualquier actividad extenuante para ayudar a que singh mueca sane. Seguimiento con ciruga de la mano para evaluacin y tratamiento adicionales. Borja sido derivado a un cirujano de mano para que lo evale nuevamente. Print Language: SLOVENIAN - Post Discharge Activity Work/Back to School Note: Back to Work
== END 2020-05-03 09:50 | disposition home or self-care (01) ==
LOC: JER 08:58
DX: S63.501A Unspecified sprain of right wrist, initial encounter (principal)
CPT/HCPCS: 73110-TC-RT-FY; 99283-25

== ENCOUNTER 2020-10-28 08:20 | Emergency (ER) | payer OTHER ==
[2020-10-28 08:29] VITALS: BP 130/80; PULSE 89; TEMP 98.3; BMI 25.2
[2020-10-28] MEDS ORDERED: LIDOCAINE 5% TOPICAL PATCH TP ONE (08:56)
[2020-10-28] MEDS ORDERED: METHOCARBAMOL 500 MG TABLET PO ONE (08:56)
[2020-10-28] MEDS ORDERED: KETOROLAC TROMETHAMINE 60 MG/2 ML VIAL IM ONE (08:56)
[2020-10-28] MEDS ORDERED: METHOCARBAMOL 500 MG TABLET ONE (09:01)
[2020-10-28] MEDS ORDERED: LIDOCAINE 5% TOPICAL PATCH ONE (09:01)
[2020-10-28] MEDS ORDERED: KETOROLAC TROMETHAMINE 30 MG/1 ML VIAL ONE (09:01)
== END 2020-10-28 09:13 | disposition home or self-care (01) ==
LOC: JER 08:20
PROC: 3E0233Z Introduction of Anti-inflammatory into Muscle, Percutaneous Approach (ICD-10-PCS; principal; 2020-10-28)
DX: M54.2 Cervicalgia (principal)
CPT/HCPCS: 99284-25

== ENCOUNTER 2021-06-20 14:07 | Emergency (ER) | payer OTHER ==
[2021-06-20 14:52] VITALS: BP 119/83; PULSE 101; TEMP 98.5; BMI 29.0
== END 2021-06-20 16:56 | disposition home or self-care (01) ==
LOC: JER 14:07
DX: R05.1 Acute cough (principal)
CPT/HCPCS: 99281-25

== ENCOUNTER 2022-08-21 09:19 | Emergency (ER) | payer OTHER ==
[2022-08-21 09:34] VITALS: BP 152/86; RESP 16; TEMP 98.2; BMI 29.3
[2022-08-21] MEDS ORDERED: PROCHLORPERAZINE INJECTION 10 MG/2 ML VIAL IVPB ONE (10:09)
[2022-08-21] MEDS ORDERED: SODIUM CHLORIDE 1,000 ML IV STA (10:10)
[2022-08-21 10:12] VITALS: PULSE 100
[2022-08-21] MEDS ORDERED: PROCHLORPERAZINE INJECTION 10 MG/2 ML VIAL ONE (10:14)
== END 2022-08-21 12:01 | disposition home or self-care (01) ==
LOC: JER 09:19
PROC: 3E033GC Introduction of Other Therapeutic Substance into Peripheral Vein, Percutaneous Approach (ICD-10-PCS; principal; 2022-08-21)
PROC: 3E0337Z Introduction of Electrolytic and Water Balance Substance into Peripheral Vein, Percutaneous Approach (ICD-10-PCS; 2022-08-21)
DX: G43.909 Migraine, unspecified, not intractable, without status migrainosus (principal)
CPT/HCPCS: 93005; 93010; 99284-25

== ENCOUNTER 2022-11-24 10:45 | Emergency (ER) | payer OTHER ==
[2022-11-24 11:05] VITALS: BP 128/83; PULSE 84; RESP 17; TEMP 98.4; BMI 27.4
[2022-11-24] MEDS ORDERED: SODIUM CHLORIDE 0.9% 1000 ML INFUS.BAG IV ONE (11:25)
[2022-11-24] MEDS ORDERED: ACETAMINOPHEN 1000 MG/100 ML BAG IVPB ONE (11:25)
[2022-11-24] MEDS ORDERED: FAMOTIDINE 20 MG/50 ML IVPB 20 MG/50 ML MG IVPB ONE ×2 (11:25→11:48)
[2022-11-24] MEDS ORDERED: ONDANSETRON 4 MG/2 ML VIAL IVPUSH ONE (11:25)
[2022-11-24] MEDS ORDERED: MAG HYDROX/AL HYDROX/SIMETH 30 ML UNIT-DOSE CUP PO ONE (11:26)
[2022-11-24] MEDS ORDERED: MAG HYDROX/AL HYDROX/SIMETH 30 ML UNIT-DOSE CUP ONE (11:41)
[2022-11-24] MEDS ORDERED: ONDANSETRON 4 MG/2 ML VIAL ONE (11:41)
[2022-11-24] MEDS ORDERED: ACETAMINOPHEN INJECTION 100 ML IVPB ONE ×2 (11:48→11:55)
[2022-11-24 11:54] LABS: BASO % 1.1 % (0-2.0); EOS % 7.9 % (0-4.5); HEMATOCRIT 39.4 % (32.4-45.2); HEMOGLOBIN 12.9 GM/dL (10.7-15.3); LYMPH % 36.9 % (8-40); MCH 25.8 pg (25.7-33.7); MCHC 32.9 g/dl (32.0-36.0); MEAN CELL VOLUME 78.6 fl (80-96); MEAN PLT VOLUME 8.5 fl (7.5-11.1); MONO % 3.9 % (3.8-10.2); NEUT % 50.2 % (42.8-82.8); PLATELET COUNT 410 10^3/uL (134-434); RBC 5.01 M/mm3 (3.60-5.2); RDW 15.1 % (11.6-15.6); WHITE BLOOD COUNT 9.4 K/mm3 (4.0-10.0)
[2022-11-24 11:58] LABS: EPI CELLS 14 /uL (0-25.1); HYALINE CASTS 1 /uL (0-3.1); URINE APPEARANCE CLEAR; URINE BACTERIA 77 /uL (0-1359); URINE BILIRUBIN NEGATIVE (NEGATIVE); URINE COLOR YELLOW; URINE GLUCOSE (UA) NEGATIVE (NEGATIVE); URINE KETONE NEGATIVE (NEGATIVE); URINE LEUK ESTERASE NEGATIVE (NEGATIVE); URINE NITRITE NEGATIVE (NEGATIVE); URINE PROTEIN NEGATIVE (NEGATIVE); URINE RBC 19 /uL (0-23.9); URINE UROBILINOGEN 0.2 mg/dL (0.2-1.0); URINE WBC 17 /uL (0-25.8)
[2022-11-24 12:04] LABS: POTASSIUM 4.9 mmol/L (3.5-5.1)
[2022-11-24 12:06] LABS: ALBUMIN 4.2 g/dl (3.4-5.0); BLOOD UREA NITROGEN 11.3 mg/dL (7-18); CALCIUM 9.7 mg/dL (8.5-10.1)
[2022-11-24 12:09] LABS: CREATININE 0.7 mg/dL (0.55-1.3)
[2022-11-24 12:11] LABS: TOT PROT 7.8 g/dl (6.4-8.2)
== END 2022-11-24 13:25 | disposition home or self-care (01) ==
LOC: JERFT 10:45 → JER 10:45 → JERFT 13:25
PROC: 3E033GC Introduction of Other Therapeutic Substance into Peripheral Vein, Percutaneous Approach (ICD-10-PCS; principal; 2022-11-24)
PROC: 3E033GC Introduction of Other Therapeutic Substance into Peripheral Vein, Percutaneous Approach (ICD-10-PCS; 2022-11-24)
PROC: 3E033NZ Introduction of Analgesics, Hypnotics, Sedatives into Peripheral Vein, Percutaneous Approach (ICD-10-PCS; 2022-11-24)
DX: B34.9 Viral infection, unspecified (principal); R11.2 Nausea with vomiting, unspecified; R05.9 Cough, unspecified; J34.89 Other specified disorders of nose and nasal sinuses; R10.10 Upper abdominal pain, unspecified; R42 Dizziness and giddiness; Z20.822 Contact with and (suspected) exposure to COVID-19
CPT/HCPCS: 0241U-QW; 36415; 80053; 81003; 84703; 85025; 99284-25

== ENCOUNTER 2023-01-22 13:57 | Emergency (ER) | payer OTHER ==
[2023-01-22 14:05] VITALS: BMI 28.0
[2023-01-22] MEDS ORDERED: ONDANSETRON *ODT* 4 MG TABLET SL ONE (14:29)
[2023-01-22] MEDS ORDERED: MAG HYDROX/AL HYDROX/SIMETH 30 ML UNIT-DOSE CUP PO ONE (14:29)
[2023-01-22] MEDS ORDERED: ONDANSETRON *ODT* 4 MG TABLET ONE (14:37)
[2023-01-22] MEDS ORDERED: MAG HYDROX/AL HYDROX/SIMETH 30 ML UNIT-DOSE CUP ONE (14:37)
[2023-01-22 15:08] LABS: BASO % 1.2 % (0-2.0); EOS % 3.5 % (0-4.5); HEMATOCRIT 34.7 % (32.4-45.2); HEMOGLOBIN 12.2 GM/dL (10.7-15.3); LYMPH % 31.9 % (8-40); MCH 27.5 pg (25.7-33.7); MCHC 35.1 g/dl (32.0-36.0); MEAN CELL VOLUME 78.4 fl (80-96); MEAN PLT VOLUME 7.8 fl (7.5-11.1); MONO % 5.7 % (3.8-10.2); NEUT % 57.7 % (42.8-82.8); PLATELET COUNT 336 10^3/uL (134-434); RBC 4.43 M/mm3 (3.60-5.2); RDW 14.3 % (11.6-15.6); WHITE BLOOD COUNT 7.6 K/mm3 (4.0-10.0)
[2023-01-22 15:35] LABS: POTASSIUM 4.9 mmol/L (3.5-5.1)
[2023-01-22 15:37] LABS: ALBUMIN 3.8 g/dl (3.4-5.0); CALCIUM 9.5 mg/dL (8.5-10.1); MAGNESIUM 2.1 mg/dL (1.8-2.4)
[2023-01-22 15:38] LABS: BLOOD UREA NITROGEN 17.6 mg/dL (7-18)
[2023-01-22 15:42] LABS: BILIRUBIN,TOTAL 0.6 mg/dL (0.2-1); TOT PROT 7.2 g/dl (6.4-8.2)
[2023-01-22 15:59] VITALS: BP 128/87; PULSE 92; RESP 16; TEMP 98.4
== END 2023-01-22 16:00 | disposition home or self-care (01) ==
LOC: JER 13:57
DX: R10.13 Epigastric pain (principal); R19.7 Diarrhea, unspecified; R11.0 Nausea; K92.1 Melena
CPT/HCPCS: 36415; 80053; 83690; 83735; 84703; 85025; 99283-25; Q0162

== ENCOUNTER 2023-09-04 13:13 | Emergency (ER) | payer OTHER ==
[2023-09-04 13:25] VITALS: BP 131/83; PULSE 79; RESP 18; TEMP 98.7; BMI 24.2
[2023-09-04] MEDS ORDERED: KETOROLAC TROMETHAMINE 30 MG/1 ML VIAL ONE (14:16)
[2023-09-04] MEDS ORDERED: LIDOCAINE 4% PATCH TP ONE (14:16)
[2023-09-04] MEDS ORDERED: ACETAMINOPHEN 500 MG TABLET (FP) ONE (14:17)
[2023-09-04] MEDS: KETOROLAC TROMETHAMINE 30 MG/1 ML VIAL IM ONE (14:22)
[2023-09-04] MEDS: LIDOCAINE 4% PATCH TP ONE (14:22)
[2023-09-04] MEDS: ACETAMINOPHEN 500 MG TABLET (FP) PO ONE (14:23)
[2023-09-04] MEDS ORDERED: LIDOCAINE PATCH REMOVAL MC SCH (22:00)
== END 2023-09-04 15:46 | disposition home or self-care (01) ==
LOC: JERFT 13:13
PROC: 3E0233Z Introduction of Anti-inflammatory into Muscle, Percutaneous Approach (ICD-10-PCS; principal; 2023-09-04)
DX: M54.50 Low back pain, unspecified (principal)
CPT/HCPCS: 99284-25

== ENCOUNTER 2023-09-11 12:14 | Emergency (ER) | payer OTHER ==
[2023-09-11 12:51] VITALS: BP 136/90; PULSE 78; RESP 18; TEMP 97.7; BMI 23.8
[2023-09-11] MEDS ORDERED: METHOCARBAMOL 500 MG TABLET ONE (13:54)
[2023-09-11] MEDS ORDERED: DEXAMETHASONE SOD PHOSPHATE 10 MG/1 ML VIAL ONE (13:54)
[2023-09-11] MEDS ORDERED: KETOROLAC TROMETHAMINE 30 MG/1 ML VIAL ONE (13:54)
[2023-09-11] MEDS: KETOROLAC TROMETHAMINE 30 MG/1 ML VIAL IM ONE (14:03)
[2023-09-11] MEDS: DEXAMETHASONE SOD PHOSPHATE 10 MG/1 ML VIAL IM ONE (14:03)
[2023-09-11] MEDS: METHOCARBAMOL 750 MG TABLET PO ONE (14:04)
[2023-09-11] MEDS ORDERED: cefTRIAXone SODIUM 1 GM VIAL ONE (14:13)
== END 2023-09-11 15:31 | disposition home or self-care (01) ==
LOC: JER 12:14
PROC: 3E0233Z Introduction of Anti-inflammatory into Muscle, Percutaneous Approach (ICD-10-PCS; principal; 2023-09-11)
PROC: 3E023GC Introduction of Other Therapeutic Substance into Muscle, Percutaneous Approach (ICD-10-PCS; 2023-09-11)
DX: M54.16 Radiculopathy, lumbar region (principal); M54.50 Low back pain, unspecified; M79.652 Pain in left thigh
CPT/HCPCS: 96372; 99284-25; J1100

== ENCOUNTER 2025-01-05 20:49 | Emergency (ER) | payer OTHER ==
[2025-01-05 21:08] VITALS: BP 132/92; PULSE 90; RESP 18; TEMP 97.9; BMI 29.8
[2025-01-05] MEDS ORDERED: ACETAMINOPHEN INJECTION 100 ML ONE (22:00)
[2025-01-05] MEDS ORDERED: ONDANSETRON 4 MG/2 ML VIAL ONE (22:01)
[2025-01-05] MEDS: SODIUM CHLORIDE 0.9% 500 ML INFUS.BAG IV ONE (22:08)
[2025-01-05] MEDS: ONDANSETRON 4 MG/2 ML VIAL IVPUSH ONE (22:08)
[2025-01-05] MEDS: ACETAMINOPHEN 1000 MG/100 ML BAG IVPB ONE (22:08)
[2025-01-05] MEDS ORDERED: KETOROLAC TROMETHAMINE 15 MG/ML VIAL ONE (22:52)
[2025-01-05] MEDS: KETOROLAC TROMETHAMINE 15 MG/ML VIAL IVPUSH ONE (22:52)
[2025-01-06 00:13] LABS: HIV INTERPRETATION NEGATIVE (NEGATIVE)
[2025-01-06 00:15] LABS: HCV DIAGNOSTIC IN-HOUSE W/RFLX NON-REACTIVE (NONREACTIVE)
== END 2025-01-06 00:03 | disposition home or self-care (01) ==
LOC: JER 20:49
PROC: 3E033NZ Introduction of Analgesics, Hypnotics, Sedatives into Peripheral Vein, Percutaneous Approach (ICD-10-PCS; principal; 2025-01-05)
PROC: 3E033NZ Introduction of Analgesics, Hypnotics, Sedatives into Peripheral Vein, Percutaneous Approach (ICD-10-PCS; 2025-01-05)
PROC: 3E0333Z Introduction of Anti-inflammatory into Peripheral Vein, Percutaneous Approach (ICD-10-PCS; 2025-01-05)
DX: R51.9 Headache, unspecified (principal); R11.0 Nausea
CPT/HCPCS: 36415; 84703; 86803; 87389; 99284-25

== ENCOUNTER 2025-04-17 16:35 | Emergency (ER) | payer OTHER ==
[2025-04-17 16:44] VITALS: BP 136/92; PULSE 102; RESP 18; TEMP 98.8; BMI 30.7
[2025-04-17] MEDS ORDERED: ONDANSETRON 4 MG/2 ML VIAL ONE (17:45)
[2025-04-17] MEDS ORDERED: MAG HYDROX/AL HYDROX/SIMETH 30 ML UNIT-DOSE CUP ONE (17:45)
[2025-04-17] MEDS ORDERED: FAMOTIDINE 20 MG/50 ML IVPB 20 MG/50 ML MG IVPB ONE (17:45)
[2025-04-17] MEDS: ONDANSETRON 4 MG/2 ML VIAL IVPUSH ONE (18:04)
[2025-04-17] MEDS: SODIUM CHLORIDE 0.9% 500 ML INFUS.BAG IV ONE (18:04)
[2025-04-17] MEDS: MAG HYDROX/AL HYDROX/SIMETH 30 ML UNIT-DOSE CUP PO ONE (18:04)
[2025-04-17] MEDS: FAMOTIDINE 20 MG/50 ML IVPB 20 MG/50 ML MG IVPB ONE (18:04)
[2025-04-17 18:17] LABS: ABSOLUTE IMMATURE GRANULOCYTES 0.05 x10^3/uL (0.0-0.031); BASOPHILS # 0.10 x10^3/uL (0.01-0.08); EOSINOPHIL % 1.5 % (0.7-5.8); EOSINOPHILS # 0.19 x10^3/uL (0.04-0.36); MCHC 32.7 g/dl (32.2-35.5); MEAN CELL VOLUME 81.6 fl (79.4-94.8); MEAN PLT VOLUME 9.8 fl (9.4-12.3); MONOCYTE # 0.85 x10^3/uL (0.24-0.86); MONOCYTE % 6.5 % (4.7-12.5); RDW 13.1 % (12.1-16.5)
[2025-04-17 18:37] LABS: GLUCOSE,RANDOM 102.0 mg/dL (74-106)
[2025-04-17 18:38] LABS: TOT PROT 7.3 g/dl (6.4-8.2)
[2025-04-17 18:39] LABS: CO2 26.0 mmol/L (21-32)
[2025-04-17 18:40] LABS: ALK PHOS 62.0 U/L (40-150)
[2025-04-17 18:43] LABS: CREATININE 0.56 mg/dL (0.55-1.3); SGOT/AST 23.0 U/L (5-34); SGPT/ALT 24.0 U/L (0-55)
[2025-04-17 19:00] LABS: HIV INTERPRETATION NEGATIVE (NEGATIVE)
[2025-04-17 19:02] LABS: HCV DIAGNOSTIC IN-HOUSE W/RFLX NON-REACTIVE (NONREACTIVE)
== END 2025-04-17 21:17 | disposition left against medical advice (07) ==
LOC: JER 16:35
PROC: 3E033GC Introduction of Other Therapeutic Substance into Peripheral Vein, Percutaneous Approach (ICD-10-PCS; principal; 2025-04-17)
PROC: 3E033GC Introduction of Other Therapeutic Substance into Peripheral Vein, Percutaneous Approach (ICD-10-PCS; 2025-04-17)
DX: O20.0 Threatened abortion (principal); O26.891 Other specified pregnancy related conditions, first trimester; R10.13 Epigastric pain; O99.611 Diseases of the digestive system complicating pregnancy, first trimester; K59.00 Constipation, unspecified; Z3A.01 Less than 8 weeks gestation of pregnancy
CPT/HCPCS: 36415; 71046-TC-FY; 76700-TC; 76830-TC; 80053; 83690; 84702; 85025; 86803; 87389; 99285-25